=== PATIENT | female | born 1985 | race Caucasian/White ===

== ENCOUNTER 2017-04-25 08:02 | Outpatient (CLI) | payer OTHER | END 2017-04-25 08:03 | disposition home or self-care (01) | LOC: LAB 08:02 | PROVIDERS: ATTEND Registered Nurse | DX: R73.02 Impaired glucose tolerance (oral) (principal) | CPT/HCPCS: 36415; 82951 ==

== ENCOUNTER 2017-06-04 08:00 | Outpatient (CLI) | payer OTHER | END 2017-06-04 23:59 | disposition home or self-care (01) | LOC: LAB.R 08:00 | PROVIDERS: ATTEND Registered Nurse | DX: Z36.85 Encounter for antenatal screening for Streptococcus B (principal) | CPT/HCPCS: 87081 ==

== ENCOUNTER 2017-06-04 12:26 | Outpatient (CLI) | payer OTHER ==
--- NOTE | 2017-06-09 14:08 | Ultrasound Report ---
OB FOLLOWUP: 06/04/2017 CLINICAL INDICATION: Borderline gestational diabetes, check size. TECHNIQUE: Real-time scanning was performed with new accounts representative static images obtained. LAST MENSTRUAL PERIOD 09/22/2016 Clinical Age 36 weeks 3 days US Age 36 weeks 2 days EFW Hadlock 2950 grams EFW% Hadlock 55% Heart Rate 157 bpm EDC 06/29/2017 US EDC 06/30/2017 BPD Hadlock 36 weeks 0 days; Mean mm 89 HC Hadlock 36 weeks 1 day; Mean mm 321 AC Hadlock 36 weeks 5 days; Mean mm 329 FL Hadlock 36 weeks 2 days; Mean mm 71 Presentation cephalic Placental Location post/R-fundal Cervical Length -- Amniotic Fluid ZHANNA 12.8 cm; MVP 4.4 cm FINDINGS There is a single viable intrauterine gestation, in cephalic presentation. heart rate is 157 BPM. The placenta is posterior, without evidence of previa. Amniotic fluid volume is normal, with an ZHANNA of 12.8. By size, the fetus measures 36 weeks 2 days (36 weeks 2 days by initial outside ultrasound). Estimated weight by Hadlock method is 2950 grams. No free fluid or adnexal lesion is appreciated. IMPRESSION: SINGLE VIABLE INTRAUTERINE GESTATION, WITH EXPECTED GROWTH FROM PREVIOUS SONOGRAMS. ESTIMATED WEIGHT OF 2950 GRAMS BY HADLOCK METHOD. TD: 06/04/2017 15:30 MTDD
== END 2017-06-04 12:27 | disposition home or self-care (01) ==
LOC: DI 12:26
PROVIDERS: ATTEND Nurse Practitioner Obstetrics & Gynecology
DX: O24.410 Gestational diabetes mellitus in pregnancy, diet controlled (principal)
CPT/HCPCS: 76816

== ENCOUNTER 2017-06-19 16:59 | Inpatient (IN) | payer OTHER ==
[2017-06-19 17:38] LABS: RUPTURE OF MEMBRANES PLUS POSITIVE (NEGATIVE)
[2017-06-19] MEDS ORDERED: fentaNYL 100 MCG/2 ML VIAL IVP PRN (18:18)
--- NOTE | 2017-06-19 18:55 | HISTORY & PHYSICAL EXAMINATION ---
Admit History - Instructions Cahto/Slash: -Left hand click circles element as positive or present. -Right hand click slashes element as negative or not present. - Visit Reason Visit Reason: Membranes rupture - : 3 Parity: 1 Premature: 0 Ectopic: 0 : 1 Care: positive: Albina GARCIA (transfer of care @ 28 weeks' gestation) Risk/History: positive: None Complications This : positive: None Smoking Status: Never smoker - Mother's Labs Mother's Blood Type: positive: O Mother's RH: positive: Positive GBS: positive: Group B Step Negative Rubella Status: positive: Immune Meds/Allgy - Home Medications Home Medications: Ambulatory Orders Medication Instructions Recorded Confirmed Nitrofurantoin Monohyd/M-Cryst 100 mg PO BID 5 Days capsule 10/22/15 [Macrobid 100 mg Capsule] - Allergies Allergies/Adverse Reactions: Allergies Allergy/AdvReac Type Severity Reaction Status Date / Time No Known Drug Allergies Allergy Verified 10/22/15 17:14 Review of Systems - Constitutional Constitutional: reports: Fatigue. denies: Fever, Weakness, Poor appetite - Eyes Eyes: denies: Blurred vision, Spots in vision, Vision loss - Ears, Nose & Throat Ears, Nose & Throat: denies: Hearing loss - Cardiovascular Cariovascular: denies: Irregular heart rate, Palpitations, Chest pain, Edema - Respiratory Respiratory: denies: Cough, Sputum production, Wheezing, SOB at rest, SOB with exertion - Gastrointestinal Gastrointestinal: reports: Abdominal pain (contractions). denies: Abdominal distention, Constipation, Diarrhea, Nausea, Vomiting - Genitourinary Genitourinary: reports: Frequency, Urgency. denies: Dysuria - Musculoskeletal Musculoskeletal: reports: Back pain. denies: Muscle pain, Muscle aches - Integumentary Integumentary: denies: Rash, Pruritis, Lesions - Neurological Neurological: denies: General weakness, Focal weakness, Headache, Numbness - Psychiatric Psychiatric: denies: Depression, Anxiety - Endocrine Endocrine: denies: Polyuria - All Other Systems All Other Systems: reports: Other (+LOF, no VB, +uterine contractions, +FM) Physical - Abdominal Exam Vital Signs: Temp Pulse Resp BP Pulse Ox 36.9 C 91 17 121/78 98 06/19/17 17:07 06/19/17 17:07 06/19/17 17:07 06/19/17 17:07 06/19/17 17:07 Contraction Frequency (min/apart): 3-5 Contraction Intensity: positive: Moderate Uterine Resting Tone: positive: Soft - Monitoring Heart Rate Baseline: 135 Strip Review: positive: Category I (+accels, no decels, mod carly) - Presentation Presentation: positive: Vertex - Vaginal Exam Membranes: positive: Membranes ruptured (for CAF, ongoing leakage, ROM + positive, @ 1500) Dilation (in cm): 4 Effacement (%): 70 Station: positive: -2 Cervical Position: positive: Posterior (per RN) - Speculum Exam Speculum Exam Performed: positive: No Findings: positive: Other (ROM + positve) - Other Notes Labor Progress Note/Additional Text: Sally Aparicio is a 31 y/o who presented for care in the early first trimester & was dated by first trimester US, giving her an JARROD of 06/30/2017, consistent w/ a 38w4d gestation today. She was seen x7 visits @ [facility]; she conceived w/ IUD in situ but did not have evidence of IUD in place @ the time of initial US, will need abd Xray for localization s/p delivery. She transferred care for midwifery services @ [facility] @ 28 weeks' gestation, where she was seen x6 visits. She had an elevated 1-hr gtt & normal 3-hr gtt. She monitored he CBGS x2 weeks & all were WNL. She generally adheres to a strict carbohydrate-free diet & she exercises regularly. All routine PN labs WNL, GBS negative @ 36 weeks. She presents today w/ complaint of leakage of fluid per vagina beginning @ 1500 accompanied by uterine contractions, which have gotten progressively frequent & intense. She denies vaginal bleeding. She reports good FM. Her ROM + on evaluation by RN was positive & SVE was unchanged from her SVE in the office 06/18 (/-3, soft, posterior). She desires minimal intervention in labor & is hoping to have an unmedicated delivery. She has had 1 previous OOH delivery w/o medication. 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 Admit 2. Reviewed management of SROM & risks/benefits of all options, pt desires expectant management for now & re-evaluation if no active labor by 12 hours s/p SROM 3. Pt declines IV placement & phlebotomy, aware of associated risks, aware of possible need for emergent IV placement 4. Intermittent auscultation as initial NST reactive, reassuring, consistently cat I 5. Reviewed optimal maternal positioning/activity in early labor 6. Pt desires hydrotherapy for pain management @ this time 7. Pt declines continuous labor support @ this time, coping well, present & very supportive, involved. 8. Reassess cervical status only when clinically indicated, e.g., w/ need for intervention or urge to push--reviewed rationale for limiting SVE in setting of ROM 9. Reviewed plan of care w/ pt, partner & RN; reviewed clinical scenario w/ Dr. Gladys MD, back-up CUSTOMER RELATIONS SPECIALIST--all in agreement, without concerns
[2017-06-19] MEDS ORDERED: SODIUM CHLORIDE FLUSH 0.9% 10 ML SYRINGE ONE (20:20)
[2017-06-19 20:59] LABS: BASOPHILS % (AUTO) 0.1 %; EOSINOPHILS % (AUTO) 0.2 %; HGB - HEMOGLOBIN 12.6 g/dL (12.0-16.0); LYMPHOCYTES # (AUTO) 1.2 10^3/uL (1.5-3.5); LYMPHOCYTES % (AUTO) 10.1 %; MEAN CORPUSCULAR HEMOGLOBIN 30.3 pg (27.0-31.0); MEAN CORPUSCULAR HGB CONC 33.2 g/dL (32.0-36.0); MEAN CORPUSCULAR VOLUME 91.2 fL (81.0-99.0); MEAN PLATELET VOLUME 9.7 fL (7.9-10.8); MONOCYTES # (AUTO) 0.6 10^3/uL (0.0-1.0); MONOCYTES % (AUTO) 4.5 %; NEUTROPHILS # (AUTO) 10.4 10^3/uL (1.5-6.6); NEUTROPHILS % (AUTO) 85.1 %; PLT - PLATELET COUNT 156 10^3/uL (130-450); RED BLOOD COUNT 4.16 10^6/uL (4.20-5.40); RED CELL DISTRIBUTION WIDTH 12.8 % (12.0-15.0); WHITE BLOOD COUNT 12.2 x10^3/uL (4.8-10.8)
[2017-06-19] MEDS ORDERED: LACTATED RINGERS 1,000 ML IV ONE (22:50)
[2017-06-19] MEDS ORDERED: LACTATED RINGERS 1,000 ML IV SCH (23:00)
[2017-06-19] MEDS: OXYTOCIN/SODIUM CHLORIDE 500 ML IV ONE (23:47)
[2017-06-19] MEDS ORDERED: LIDOCAINE 1% 50 ML MDV ONE (23:55)
--- NOTE | 2017-06-20 00:17 | DELIVERY NOTE ---
Delivery Note - Labor Labor: positive: Spontaneous - Delivery Method Delivery Method: positive: Spontaneous vaginal delivery - Presentation Presentation: positive: Vertex, RIGO - right occiput anterior - Nuchal Cord Nuchal Cord: positive: None - Anesthetic Anesthetic Type: - Amniotic Fluid Description Amniotic Fluid Description: positive: Clear (SROM FOR CAF @ 1500, FOR A TOTAL RUPTURED DURATIO OF 8 HOURS, 39 MINUTES) - Episiotomy Type Episiotomy Type: positive: None - Laceration Laceration: positive: None - Delivery Outcome Delivery Outcome: positive: Livebirth - [place] : positive: Placed in direct skin contact with mother, Suctioned, Bulb syringe, Stimulated, Warmed, [place] used sex: positive: Male - Cord Cord: positive: 3 vessels - Placenta Placenta: positive: Intact, Spontaneous - Estimated Blood Loss Estimated Blood Loss (in cc): 300 - Post Delivery Events Post Delivery Events: positive: No post delivery events - Delivery Comments (Free Text/Narrative) Delivery Comments (Free Text/Narrative): ALEXEY CRANE IS A 31 Y/O [id number] WHO PRESENTED W/ SROM FOR CAF @ 1500 IN EARLY, LATENT LABOR. SHE PROGRESSED SPONTANEOUSLY OVER A PERIOD OF 4 HOURS TO ACTIVE LABOR BEGINNING @ 2210, WHEN SHE WAS 4-5CM DILATED. FHTS WERE MONITORED W/ DOPPLER AUSCULTATION & WERE REASSURING T/O. SHE UTILIZED AMBULATION, POSITION CHANGES, HYDROTHERAPY & A SINGLE DOSE OF IV FENTANYL FOR PAIN MANAGEMENT. SHE PROGRESSED SPONTANEOUSLY TO COMPLETE DILATATION @ 2317, FOR A TOTAL FIRST STAGE DURATION OF 8 HOURS, 17 MINUTES. SHE PUSHED IN UPRIGHT POSITION W/ SPONTANEOUS URGE & EXCELLENT EXPULSIVE EFFORT TO VIABLE MALE IN RIGO POSITION OVER INTACT PERINEUM @ 2339, FOR A TOTAL 2ND STAGE DURATION OF 22 MINUTES. VIGOROUS W/ SPONTANEOUS, LUSTY CRY. HANDED TO SEATED MOTHER FOR [id number] CONTACT, DRYING/STIM. DELAYED CORD CLAMPING UNTIL CESSATION OF PULSATION, THEN CORD CLAMPED X2 BY CNM, CUT BY FOB. 3VC NOTED, CORD BLOOD OBTAINED. ACTIVE MANAGEMENT OF THE THIRD STAGE W/ PITOCIN IN IV FLUIDS. PLACENTA DEL SPONTANEOUSLY, SONAM, @ 2347, FOR A TOTAL 2ND STAGE DURATION OF 8 MINUTES. FF U-1. VAGINA & PERINEUM INSPECTED & SMALL LABIAL LACERATIONS NOTED, HEMOSTATIC W/ APPLIED PRESSURE, NO REPAIR NEEDED. EBL 300ML. @ BREAST & NUZZLING/INTERMITTENTLY SUCKLING W/IN 30 MINUTES OF DELIVERY. MOTHER & INFANT STABLE. APGARS 8/9, WEIGHT PENDING.
[2017-06-20] MEDS ORDERED: MAGNESIUM HYDROXIDE 2,400 MG/30 ML UDC PO PRN (00:18)
[2017-06-20] MEDS ORDERED: OXYTOCIN/SODIUM CHLORIDE 250 ML IV ONE (00:18)
[2017-06-20] MEDS ORDERED: WITCH HAZEL/GLYCERIN 1 EACH MED..PAD TOP PRN (00:18)
[2017-06-20] MEDS ORDERED: HYDROCORTISONE/PRAMOXINE 10 GM PR PRN (00:18)
[2017-06-20] MEDS ORDERED: HYDROCORTISONE 1% CREAM 28 GM TUBE PR PRN (00:18)
[2017-06-20] MEDS: DOCUSATE SODIUM 100 MG CAPSULE PO SCH ×3 (00:50→21:03)
[2017-06-20] MEDS: ACETAMINOPHEN 500 MG TABLET PO SCH ×3 (00:50→16:33)
[2017-06-20] MEDS: CELECOXIB 100 MG CAPSULE PO SCH ×3 (00:50→21:03)
[2017-06-20] MEDS ORDERED: LACTATED RINGERS 1,000 ML IV SCH (01:00)
[2017-06-20] MEDS: OXYTOCIN/SODIUM CHLORIDE 500 ML IV ONE (03:37)
--- NOTE | 2017-06-20 18:04 | PROVIDER PROGRESS NOTE ---
Subjective - Prog Note Date Prog Note Date: 06/20/17 Prog Note Time: 17:00 - Subjective Pt reports feeling: Improved Subjective: Sally is tired but doing well. She has minimal discomfort & is ambulating & voiding w/o difficulty. She is well w/o discomfort. Her is present @ the bedside & is supportive. She denies hx of pp depression & does not plan to return to work. She reports minimal lochia. Wei leaves for his new work in [facility] [employer] [facility] 06/29 & his mother is coming to assist Sally @ home. Objective - Vital Signs/Intake & Output Reviewed Vital Signs: Yes Vital Signs: Vital Signs x48h Temp Pulse Resp BP Pulse Ox 06/20/17 16:32 112/75 06/20/17 12:34 106/61 100 06/20/17 12:32 36.4 C L 174 H 18 107/46 L 100 Intake & Output: Intake & Output 06/17/17 06/18/17 06/19/17 06/20/17 23:59 23:59 23:59 23:59 Intake Total 1000 Output Total 575 Balance 425 - Objective General Appearance: positive: No acute distress, Alert Respiratory: positive: Chest non-tender, No respiratory distress, Breath sounds nml Cardiovascular: positive: Regular rate & rhythm, No murmur, No gallop Abdomen: positive: Non-tender, No organomegaly, No distention, Other (FF U-2) Skin: positive: Color nml, No rash, Warm, Dry Extremities: positive: Non-tender, Full ROM, Nml appearance, No pedal edema. negative: Calf tenderness Neurologic/Psychiatric: positive: Oriented x3, CN's nml (2-12), Motor nml, Sensation nml, Mood/affect nml Comments/Other: breasts b/l s, nt; nipples b/l intact & everted perineum intact, no erythema/edema/ecchymosis, minimal lochia rubra - Lab Results Fish Bones: 06/19/17 20:35 Other Labs: Lab Results x24hrs 06/19/17 06/19/17 Range/Units 20:35 20:35 WBC 12.2 H (4.8-10.8) x10^3/uL RBC 4.16 L (4.20-5.40) 10^6/uL Hgb 12.6 (12.0-16.0) g/dL Hct 37.9 (37.0-47.0) % MCV 91.2 (81.0-99.0) fL MCH 30.3 (27.0-31.0) pg MCHC 33.2 (32.0-36.0) g/dL RDW 12.8 (12.0-15.0) % Plt Count 156 (130-450) 10^3/uL MPV 9.7 (7.9-10.8) fL Neut # 10.4 H (1.5-6.6) 10^3/uL Lymph # 1.2 L (1.5-3.5) 10^3/uL [place] # 0.6 (0.0-1.0) 10^3/uL Eos # 0.0 (0.0-0.7) 10^3/uL Baso # 0.0 (0.0-0.1) 10^3/uL Absolute Nucleated RBC 0.00 x10^3/uL Nucleated RBC % 0.0 /100WBC Blood Type O POSITIVE Antibody Screen NEGATIVE Assessment/Plan - Problem List (1) (normal spontaneous vaginal delivery) Impression: 31 y/o s/p w/o laceration, PPD #1 Adequate pain control w/o opioid analgesia Normal uterine involution well Uncertain location of IUD w/o localization @ the time of 1. Plan abdominal xray for IUD localization 2. Routine care 3. support provided & to continue in ongoing fashion 4. Anticipate d/c PPD#2
--- NOTE | 2017-06-20 19:13 | XRAY Report ---
EXAM: ABDOMEN RADIOGRAPHY EXAM DATE: 06/20/2017 06:36 PM. CLINICAL HISTORY: IUD localization. COMPARISON: None. TECHNIQUE: 1 view. FINDINGS: Bowel Gas Pattern: No dilated bowel. There is moderate stool within the colon. Other: Intrauterine device is not seen. IMPRESSION: Radiopaque intrauterine device is not seen. [facility] Referring Provider Line: [phone] SITE ID: [id number]
[2017-06-21] MEDS: ACETAMINOPHEN 500 MG TABLET PO SCH ×2 (00:32→08:34)
[2017-06-21 08:32] VITALS: BP 106/52
[2017-06-21] MEDS: DOCUSATE SODIUM 100 MG CAPSULE PO SCH (08:35)
[2017-06-21] MEDS: CELECOXIB 100 MG CAPSULE PO SCH (08:35)
--- NOTE | 2017-06-21 13:17 | Discharge Plan ---
Discharge Plan Disposition: 01 Home, Self Care Condition: Good Diet: Regular Activity Restrictions: pelvic rest x6 weeks Shower Restrictions: No Driving Restrictions: No Weight Bearing: Full Weight Instruction Topics: Vaginal After, Breastfeed How To, Jaundice Signs Inf , Exercises Kegel Additional Instructions or Follow Up instructions: x1 week in outpt clinic w/ saad Sumner PRN No Smoking: If you smoke, Please STOP! Call for help. Follow-up with: Mallory Ewing CNM, EBONY [Provider Admit Priv/Credential] -
--- NOTE | 2017-06-21 14:05 | DISCHARGE SUMMARY ---
"Discharge Summary Admit Date: 06/19/17 Discharge Date: 06/21/17 Discharging Provider: MARC Code Status: Attempt Resuscitation Condition at Discharge: Good Discharge Disposition: 01 Home, Self Care Discharge Facility Name: [facility] - DIAGNOSES Admission Diagnoses: LEAKAGE OF AMNIOTIC FLUID 38 WEEKS GESTATION Discharge Diagnoses with Status of Each Condition: - HPI History of Present Illness: ALEXEY CRANE IS A 31 Y/O WHO PRESENTED @ 38W4D GESTATION IN LATENT LABOR W / SROM. SHE PROGRESSED SPONTANEOUSLY W/O COMPLICATION TO COMPLETE DILATATION OVER A PERIOD OF 8 HOURS & PUSHED EFFECTIVELY TO OF VIABLE MALE IN RIGO POSITION OVER AN INTACT PERINEUM. APGARS 8/9, WEIGHT 7#8OZ. NO IMMEDIATE PP COMPLICATIONS. - CONSULTS | PROCEDURES Procedures: - HOSPITAL COURSE Hospital Course: , ALEXEY IS AMBULATING & VOIDING W/O DIFFICULTY. SHE IS PASSING FLATUS & TOLERATING A REGULAR DIET. SHE IS EXCLUSIVELY W/ EXCELLENT LATCH. SHE HAS MINIMAL LOCHIA RUBRA & SLIGHT PERINEAL DISCOMFORT. HER PAIN IS WELL-CONTROLLED W/O OPIOID ANALGESIA. SHE CONCEIVED WHILE USING PARAGARD IUD FOR CONTRACEPTION; IUD NOT LOCALIZED ON US DURING HER & NOT LOCALIZED W/ ABDOMINAL XRAY S/P DELIVERY, PRESUMED EXPULSION. SHE DENIES HX OF PP DEPRESSION. SHE IS NOT PLANNING TO RETURN TO WORK. HER PARTNER WILL BE AVAILABLE TO ASSIST HER UNTIL 06/29 THEN WILL BE LEAVING FOR [facility] X3 MONTHS. SHE HAS OTHER EXCELLENT SOCIAL SUPPORT & REPORTS NO CONCERNS ABOUT ISOLATION. SHE IS ABLE TO FULLY ARTICULATE PP WARNING S/SX, INCLUDING PP DEPRESSION S/SX, AND PP AFTERCARE INSTRUCTIONS. SHE IS READY TO LEAVE THE HOSPITAL. - ALLERGIES Allergies/Adverse Reactions: Allergies Allergy/AdvReac Type Severity Reaction Status Date / Time No Known Drug Allergies Allergy Verified 10/22/15 17:14 - PHYSICAL EXAM AT DISCHARGE General Appearance: positive: No acute distress, Alert Eyes Bilateral: positive: Normal inspection, PERRL, EOMI Respiratory: positive: Chest non-tender, No respiratory distress, Breath sounds nml Cardiovascular: positive: Regular rate & rhythm, No murmur, No gallop Abdomen: positive: Non-tender, No organomegaly, No distention, Other (FFu-2) Skin: positive: Color nml, No rash, Warm, Dry Extremities: positive: Non-tender, Full ROM, Nml appearance, No pedal edema. negative: Calf tenderness Neurologic/Psychiatric: positive: Oriented x3, CN's nml (2-12), Motor nml, Sensation nml, Mood/affect nml Physical Exam Other/Comments: BREASTS B/L S, NT; NIPPLES B/L INTACT & EVERTED; COLOSTRUM READILY EXPRESSIBLE; LATCH OBSERVED & CONSISTENTLY 10/10 PERINEUM INTACT W/O ERYTHEMA/EDEMA/ECCHYMOSIS, MINIMAL LOCHIA RUBRA - LABS Result Diagrams: 06/19/17 20:35 - DIAGNOSTIC IMAGING Diagnostic Imaging Results: Final report reviewed - FOLLOW UP Follow Up: X1 WEEK IN OUTPT CLINIC W/ TAMIKO TRAN CNM - TIME SPENT Time Spent in Discharge (Minutes): 30"
--- NOTE | 2017-06-21 16:11 | Labor Flowsheet ---
Labor Flowsheet Datetime Report Generated by CPN: 06/21/2017 16:11 Datetime: 06/21/2017 08:31 VITAL SIGNS NBP Sys/Lissette/Mean (mmHg): 106 : 52 : 64 Pulse: 70 Datetime: 06/20/2017 23:39 SpO2 (%): 98 Datetime: 06/20/2017 01:16 Respirations: 18 Datetime: 06/19/2017 23:56 Stage of : Recovery Datetime: 06/19/2017 23:27 UTERINE ACTIVITY Monitor Mode: External Frequency (min): 2 Quality: Strong Pattern: Normal: <= 5 Contractions in 10 Minutes Resting Tone (Palpate): Relaxed ASSESSMENT A Monitor Mode: Doppler (Annotations: 150) Datetime: 06/19/2017 23:17 VAGINAL EXAM Dilatation (cm): 10.0 Effacement (%): 100 Station: 1 Exam by: Mallory Barron CNM Vaginal Bleeding: Normal Show PATIENT CARE Patient Care Comments: to birthing stool to push Datetime: 06/19/2017 23:12 Duration (sec): 60-90 Contraction Comments: breathing through contractions while standing and rocking at bedside. FHR Baseline Rate : 160 Variability: Moderate 6-25 bpm Accelerations: 15X15 Decelerations: None Category: Category I Datetime: 06/19/2017 21:21 Monitor Interventions for UA: 154 (Annotations: doppler) COMMUNICATION LaborFlag: Labor Datetime: 06/19/2017 20:10 FHR Baseline Changes: No Baseline Change Datetime: 06/19/2017 19:23 Comments: doppler tones after getting out of jacuzzi heart tones 160-186. placed back on EFM due to heart reate 94 on doppler after contraction.
== END 2017-06-21 14:30 | disposition home or self-care (01) | DRG 775 ==
LOC: WFO 16:59 → FBP 17:00 → WFO 18:17 → FBP 18:18
PROVIDERS: ADMIT Registered Nurse; ATTEND Registered Nurse
PROC: 10E0XZZ Delivery of Products of Conception, External Approach (ICD-10-PCS; principal; 2017-06-20)
DX: O42.02 Full-term premature rupture of membranes, onset of labor within 24 hours of rupture (principal); O70.0 First degree perineal laceration during delivery; Z3A.38 38 weeks gestation of pregnancy; Z37.0 Single live birth
CPT/HCPCS: 74018; 84112; 85025; 86850; 86900; 86901; 99213

== ENCOUNTER 2018-06-01 19:53 | Emergency (ER) | payer OTHER ==
[2018-06-01 20:32] LABS: BASOPHILS # (AUTO) 0.1 10^3/uL (0.0-0.1); BASOPHILS % (AUTO) 1.5 %; EOSINOPHILS # (AUTO) 0.1 10^3/uL (0.0-0.7); EOSINOPHILS % (AUTO) 0.7 %; HGB - HEMOGLOBIN 12.4 g/dL (12.0-16.0); LYMPHOCYTES # (AUTO) 1.9 10^3/uL (1.5-3.5); LYMPHOCYTES % (AUTO) 24.1 %; MEAN CORPUSCULAR HEMOGLOBIN 29.9 pg (27.0-31.0); MEAN CORPUSCULAR HGB CONC 33.7 g/dL (32.0-36.0); MEAN CORPUSCULAR VOLUME 88.7 fL (81.0-99.0); MEAN PLATELET VOLUME 7.7 fL (7.9-10.8); MONOCYTES # (AUTO) 0.5 10^3/uL (0.0-1.0); MONOCYTES % (AUTO) 6.9 %; NEUTROPHILS # (AUTO) 5.2 10^3/uL (1.5-6.6); NEUTROPHILS % (AUTO) 66.8 %; PLT - PLATELET COUNT 295 10^3/uL (130-450); RED BLOOD COUNT 4.17 10^6/uL (4.20-5.40); RED CELL DISTRIBUTION WIDTH 13.8 % (12.0-15.0); WHITE BLOOD COUNT 7.7 x10^3/uL (4.8-10.8)
[2018-06-01 20:47] LABS: ALBUMIN 4.6 g/dL (3.2-5.5); ALBUMIN/GLOBULIN RATIO 1.2 (1.0-2.2); BILIRUBIN,TOTAL 0.7 mg/dL (0.2-1.0); CALCIUM 9.5 mg/dL (8.5-10.3); CREATININE 0.8 mg/dL (0.4-1.0); TOTAL PROTEIN 8.3 g/dL (6.7-8.2)
[2018-06-01 21:45] LABS: BILIRUBIN,URINE NEGATIVE (NEGATIVE); GLUCOSE, URINE (UA) NEGATIVE (NEGATIVE); KETONES,URINE (UA) NEGATIVE (NEGATIVE); LEUKOCYTE ESTERASE, URINE NEGATIVE (NEGATIVE); NITRITE,URINE NEGATIVE (NEGATIVE); OCCULT BLOOD,URINE NEGATIVE (NEGATIVE); PROTEIN,URINE NEGATIVE (NEGATIVE); UROBILINOGEN,URINE 0.2 (NORMAL) E.U./dL (NORMAL)
[2018-06-01 21:59] LABS: CLARITY,URINE CLEAR (CLEAR); HCG UR QUAL NEGATIVE
--- NOTE | 2018-06-01 22:01 | ED Physician Documentation ---
PD HPI ABD PAIN - Stated complaint Stated Complaint: ABD PX - Chief complaint Chief Complaint: Abd Pain - History obtained from History obtained from: Patient - History of Present Illness Timing - onset: How many hours ago (5-6), Today Timing - duration: Hours (5-6) Timing - details: Abrupt onset, Still present (She states the pain was worst initially and had an abrupt onset. The worst pain was for the first half hour to hour and tapered some. However does still continue to do very uncomfortable degree and came in for evaluation.) Quality: Cramping, Aching, Pain Location: RLQ, Suprapubic Radiation: No: Lower back, Right flank Improved by: Laying still. No: Eating Worsened by: Moving, Position. No: Eating, Breathing Associated symptoms: Nausea, Vomiting. No: Fever, Diarrhea, Constipation, Dysuria, Hematuria, Vaginal bleeding, Vaginal dc Similar symptoms before: Has not had sx before Recently seen: Not recently seen Review of Systems Constitutional: denies: Fever, Chills, Myalgias Nose: denies: Rhinorrhea / runny nose, Congestion Throat: denies: Sore throat Cardiac: denies: Chest pain / pressure Respiratory: denies: Dyspnea, Cough GI: reports: Abdominal Pain, Nausea, Vomiting. denies: Abdominal Swelling, Constipation, Diarrhea : reports: LMP (2 weeks ago). 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, Other : None HEENT: None Psych: None Musculoskeletal: None Derm: None - Past Surgical History Past Surgical History: Yes Ortho: ACL reconstruction - Present Medications Home Medications: Ambulatory Orders Medication Instructions Recorded Confirmed Naproxen 500 mg PO BID #20 tablet 06/02/18 Oxycodone HCl/Acetaminophen 1 - 2 each PO Q6H PRN #14 tablet 06/02/18 [Percocet 5-325 mg Tablet] - Allergies Allergies/Adverse Reactions: Allergies Allergy/AdvReac Type Severity Reaction Status Date / Time No Known Drug Allergies Allergy Verified 06/01/18 20:18 - Social History Does the pt smoke?: No Smoking Status: Never smoker Does the pt drink ETOH?: Yes ETOH Use: Liquor Does the pt have substance abuse?: No - Immunizations Immunizations are current?: Yes - POLST Patient has POLST: No PD ED PE NORMAL - Vitals Vital signs reviewed: Yes - General General: Alert and oriented X 3, Well developed/nourished, Other (appears uncomfortable and feels best on her hands and knees. Does have pain increase with ROM. ) - HEENT HEENT: Pharynx benign - Neck Neck: Supple, no meningeal sign, No adenopathy - Cardiac Cardiac: RRR, No murmur - Respiratory Respiratory: Clear bilaterally - Abdomen Abdomen: Normal bowel sounds, Soft, No organomegaly - Female Female : Deferred - Rectal Rectal: Deferred - Back Back: No CVA TTP - Derm Derm: Normal color, Warm and dry, No rash - Extremities Extremities: Normal ROM s pain, No edema, No calf tenderness / cord - Neuro Neuro: Alert and oriented X 3, No motor deficit, Normal speech Results - Vitals Vitals: Vital Signs - 24 hr 06/01/18 06/01/18 06/02/18 20:09 22:45 00:17 Temperature 37 C 36.5 C Heart Rate 93 62 61 Respiratory 20 18 14 Rate Blood Pressure 117/85 H 118/64 113/77 O2 Saturation 100 97 98 06/02/18 01:59 Temperature 36.2 C L Heart Rate 66 Respiratory 14 Rate Blood Pressure 112/80 O2 Saturation 99 Oxygen O2 Source Room air - Labs Labs: Laboratory Tests 06/01/18 06/01/18 06/01/18 20:27 20:27 21:30 WBC 7.7 RBC 4.17 L Hgb 12.4 Hct 37.0 MCV 88.7 MCH 29.9 MCHC 33.7 RDW 13.8 Plt Count 295 MPV 7.7 L Neut # (Auto) 5.2 Lymph # (Auto) 1.9 [place] # (Auto) 0.5 Eos # (Auto) 0.1 Baso # (Auto) 0.1 Absolute Nucleated RBC 0.00 Nucleated RBC % 0.0 Sodium 136 Potassium 3.7 Chloride 103 Carbon Dioxide 23 Anion Gap 10.0 BUN 16 Creatinine 0.8 Estimated GFR (MDRD) 83 L Glucose 98 Calcium 9.5 Total Bilirubin 0.7 AST 37 ALT 48 Alkaline Phosphatase 97 Total Protein 8.3 H Albumin 4.6 Globulin 3.7 Albumin/Globulin Ratio 1.2 Lipase 26 Urine Color YELLOW Urine Clarity CLEAR Urine pH 6.0 Ur Specific [place] 1.025 Urine Protein NEGATIVE Urine Glucose (UA) NEGATIVE Urine Ketones NEGATIVE Urine Occult Blood NEGATIVE Urine Nitrite NEGATIVE Urine Bilirubin NEGATIVE Urine Urobilinogen 0.2 (NORMAL) Ur Leukocyte Esterase NEGATIVE Ur Microscopic Review NOT INDICATED Urine Culture Comments NOT INDICATED Urine HCG, Qual NEGATIVE PD MEDICAL DECISION MAKING - ED course Complexity details: reviewed results (The ultrasound shows a hemorrhagic cyst on the left without any free fluid. Her symptoms have been more midline or slightly to the right. However she does not have any fever or chills. Her white count is normal. Her and her urine is without any signs of bladder infection. I still would consider the possibility of a kidney stone though w ould be strange coincidence to also have a hemorrhagic cyst at the same time. The character and onset are unlike appendicitis. Shared decision with the patient was to forego further testing at this time and treat with NSAIDs and pain medicine for the hemorrhagic cyst with the idea of possibly ureteral process. If she has persistent pain in the next day or 2 or develops fever vomiting or bloody stool or other concerns and she is to return for potential CT scan for other causes. It is possible her cyst can also enlarge or rupture and cause increased symptoms as well.), re-evaluated patient (Much improved with IV medications.), considered differential (She has pain in the lower abdomen midline and slightly more to the right. Consider ovarian cyst with hemorrhage or rupture and also concern for torsion. Consider also ureterolithiasis given the abrupt onset of it. Less likely would be appendicitis or UTI.), d/w patient Departure - Departure Disposition: 01 Home, Self Care Clinical Impression: Lower abdominal pain Condition: Stable Record reviewed to determine appropriate education?: Yes Instructions: ED Abdominal Pain Unkn Cause, ED Cyst Ovarian Prescriptions: Naproxen 500 mg PO BID #20 tablet Oxycodone HCl/Acetaminophen [Percocet 5-325 mg Tablet] 1 - 2 each PO Q6H PRN #14 tablet PRN Reason: pain Comments: Stay well-hydrated. Use some naproxen or ibuprofen anti-inflammatories twice daily. To that add Tylenol or Percocet if needed for pain. At this point your ultrasound does show a hemorrhagic cyst and that can account for the abrupt pain and continued pain. It is not leaking or bleeding internally. There is no blood in the urine to suggest a kidney stone as well. Your white count and temperature are normal without signs of infection in the pattern of the pain does not suggest appendicitis. However recheck if your pain is not improved in the next day or 2 if you develop other symptoms associated. Discharge Date/Time: 06/02/18 02:04
[2018-06-01] MEDS ORDERED: HYDROmorphone 2 MG/ML VIAL IVP STA (22:20)
[2018-06-01] MEDS ORDERED: SODIUM CHLORIDE 0.9% 1,000 ML IV ONE (22:20)
[2018-06-01] MEDS ORDERED: ONDANSETRON 4 MG/2 ML VIAL IVP STA (22:20)
[2018-06-01] MEDS ORDERED: KETOROLAC 15 MG/ML VIAL IVP STA (22:20)
--- NOTE | 2018-06-02 00:46 | Ultrasound Report ---
Reason: pelvic pain Procedure Date: 06/01/2018 Accession Number: [id number] / [id number] Procedure: US - Pelvic w/Transvag+Doppler Ltd CPT Code: FULL RESULT: EXAM: PELVIC ULTRASOUND WITH PELVIC DOPPLERS EXAM DATE: 06/01/2018 11:22 PM. CLINICAL HISTORY: Pelvic pain. COMPARISON: None. TECHNIQUE: Real-time transabdominal pelvic scan performed to identify the uterus and adnexa and as an overview of other pelvic structures, followed by transvaginal scan to provide greater detail of the uterus and adnexa, with static image documentation. FINDINGS: LMP: 05/13/2018 Uterus: Uterus is normal in position and normal in configuration. Uterus measures 7.8 x 3.8 x 5.1 cm. No evident uterine masses. Endometrium: Endometrium measures 12.0 mm. Satisfactory appearance of the IUD. No suspicious thickening or vascularity. Cervix: No suspicious lesion. Right Ovary: Suboptimally visualized right ovary. As visualized it measures 3.8 x 3.3 x 3.1 cm. Possible internal 2.5 cm cyst, difficult to be certain. Peak systolic velocity measures 5 cm/s. Left Ovary: Enlarged complex appearance of the left ovary measuring 6.6 x 3.8 x 5.1 cm. Internal heterogeneous hypoechoic cyst with some septations noted, measuring 2.7 x 3.1 x 3.1 cm. Peak systolic velocity measures 24 cm/s. Fluid: There is a small amount of fluid within the pelvis. Other: No other significant findings. IMPRESSION: 1. There is a left ovary hemorrhagic cyst measuring 2.7 x 3.1 x 3.1 cm. 2. Possible heterogeneous 2.5 cm cyst within the right ovary. Suboptimally visualized right ovary. 3. There is no evidence of ovarian torsion. [facility]
[2018-06-02] MEDS ORDERED: HYDROmorphone 1 MG/ML CARPUJECT IVP STA (01:20)
[2018-06-02] MEDS ORDERED: oxyCODONE/ACET 5/325 Prepack 4 PO STA (01:20)
[2018-06-02 01:59] VITALS: BP 112/80
== END 2018-06-02 02:04 | disposition home or self-care (01) ==
LOC: ED 19:53
DX: R10.31 Right lower quadrant pain (principal); R11.2 Nausea with vomiting, unspecified; N83.202 Unspecified ovarian cyst, left side
CPT/HCPCS: 36415; 76830; 76856; 80053; 81003; 81025; 83690; 85025; 93976; 96361; 96374; 96376; 99283; 99284; J1170; 81001; 87086